=== PATIENT | male | born 1995 | race Two or more races ===

== ENCOUNTER 2025-02-13 17:03 | Emergency (ER) | payer OTHER ==
[~2025-02-13] VITALS: Ht 177.8 cm; Wt 86.2 kg
[2025-02-13 17:17] VITALS: BP 125/66; TEMP 97.8; O2SAT 99
[2025-02-13] MEDS ORDERED: SULF1TAB48 PO (17:35)
[2025-02-13] MEDS ORDERED: CIPR-263 PO (17:35)
== END 2025-02-13 18:04 | disposition home or self-care (01) ==
LOC: ER 17:26
DX: H60.12 Cellulitis of left external ear (principal); H61.032 Chondritis of left external ear; H61.002 Unspecified perichondritis of left external ear; L73.1 Pseudofolliculitis barbae; Z60.2 Problems related to living alone